=== PATIENT | male | born 1960 | race Caucasian/White ===

== ENCOUNTER 2024-10-27 14:31 | Inpatient (IN) | payer MEDICARE ==
[~2024-10-27] VITALS: Ht 162.6 cm; Wt 76.7 kg
[2024-10-27 14:35] VITALS: O2SAT 98
[2024-10-27 16:20] LABS: BASOPHILS # (AUTO) 0.1 K/uL (0.0-0.2); BASOPHILS % (AUTO) 2.1 % (0.0-2.0); EOSINOPHILS # (AUTO) 0.1 K/uL (0.0-0.7); EOSINOPHILS % (AUTO) 3.1 % (0.0-6.0); HEMATOCRIT 32 % (39-51); HEMOGLOBIN 10.7 g/dL (13.5-17.5); LYMPHOCYTES # (AUTO) 0.8 K/uL (0.8-4.8); LYMPHOCYTES % (AUTO) 18.6 % (20.0-44.0); MEAN CORPUSCULAR HEMOGLOBIN 32 PG (26.0-33.0); MEAN CORPUSCULAR HGB CONC 34 g/dl (31.0-36.0); MEAN CORPUSCULAR VOLUME 94 fL (80-96); MONOCYTES # (AUTO) 0.4 K/uL (0.1-1.30); MONOCYTES % (AUTO) 9.4 % (2.0-12.0); NEUTROPHILS # (AUTO) 2.8 K/uL (1.8-8.9); NEUTROPHILS % (AUTO) 66.8 % (43.0-81.0); PLATELET COUNT (AUTO) 139 K/uL (150-450); RED BLOOD CELL COUNT(AUTO) 3.38 MIL/uL (4.5-6.0); RED CELL DISTRIBUTION WIDTH 15.2 % (11.5-15.0); WHITE BLOOD COUNT (AUTO) 4.2 K/uL (4.3-11.0)
[2024-10-27 16:36] LABS: INR 1.46 (0.91-1.10); PARTIAL THROMBOPLASTIN TIME 30.2 SEC (24.3-34.3); PROTHROMBIN TIME 15.1 SECS (9.2-11.1)
[2024-10-27 16:38] LABS: SERUM AMMONIA 27 umol/L (11-32)
[2024-10-27 16:55] LABS: CALCIUM, SERUM 9.7 mg/dL (8.5-10.1); CARBON DIOXIDE 32 mmol/L (21-32); CHLORIDE 92 mmol/L (98-107); CREATININE 7.4 mg/dL (0.6-1.3); GLUCOSE 94 mg/dL (74-106); POTASSIUM 4.4 mmol/L (3.5-5.1); SODIUM SERUM 132 mmol/L (136-145); UREA NITROGEN, BLOOD 44 mg/dL (7-18)
[2024-10-27 17:05] LABS: ALANINE AMINOTRANSFERASE 25 U/L (12-78); ALBUMIN 4.5 g/dL (3.4-5.0); ALCOHOL, BLOOD < 3 mg/dL (0-10); ALKALINE PHOSPHATASE 280 U/L (46-116); ASPARTATE AMINOTRANSFERASE 13 U/L (15-37); BILIRUBIN,DIRECT 0.2 mg/dL (0.0-0.2); BILIRUBIN,TOTAL 0.5 mg/dL (0.2-1.0); TOTAL PROTEIN, SERUM 8.3 g/dL (6.4-8.2)
[2024-10-27] MEDS ORDERED: HYDR100T27 PO (18:11)
[2024-10-27] MEDS ORDERED: FURO80TA3 PO (18:11)
[2024-10-27] MEDS ORDERED: INSU100I26 SQ (18:11)
[2024-10-27] MEDS ORDERED: ERGO500093 PO (18:11)
[2024-10-27] MEDS ORDERED: SUCR500T PO (18:11)
[2024-10-27] MEDS ORDERED: LOSA50TA39 PO (18:11)
[2024-10-27] MEDS ORDERED: ASPI-1169 PO (18:11)
[2024-10-27] MEDS ORDERED: NIFE-35 PO (18:11)
[2024-10-27] MEDS ORDERED: NIFE-57 PO (18:11)
[2024-10-27] MEDS ORDERED: OMEG1CAP55 PO (18:11)
[2024-10-27] MEDS ORDERED: LABE100T5 PO (18:11)
[2024-10-27] MEDS ORDERED: GABA-532 PO (18:11)
[2024-10-27] MEDS ORDERED: AMLO-213 PO (18:11)
[2024-10-27 21:00] VITALS: BP 158/64; TEMP 98.8; O2SAT 98
[2024-10-27] MEDS ORDERED: TEMAZEPAM 15 MG CAPSULE PO PRN (21:30)
[2024-10-27] MEDS ORDERED: HYDROCODONE/APAP 5/325MG TABLET PO PRN (21:30)
[2024-10-27] MEDS ORDERED: MAGNESIUM HYDROXIDE 30 ML UDC PO PRN (21:30)
[2024-10-27] MEDS ORDERED: DEXTROSE 50%-WATER 50 ML DISP.SYRIN IV PRN (21:30)
[2024-10-27] MEDS ORDERED: ONDANSETRON HCL/PF 4 MG/2 ML VIAL IVP PRN (21:30)
[2024-10-27] MEDS ORDERED: Z GUARD REMEDY 4 OZ OINT TP PRN (21:30)
[2024-10-27] MEDS ORDERED: MAG HYDROX/AL HYDROX/SIMETH 30 ML UDC PO PRN (21:30)
[2024-10-27] MEDS: INSULIN REGULAR, HUMAN 100 UNIT/ML 3 ML VIAL SQ PRN (22:05)
[2024-10-27] MEDS: BLOOD SUGAR DIAGNOSTIC 1 EACH STRIP IN SCH (22:05)
[2024-10-27] MEDS ORDERED: ERGOCALCIFEROL (VITAMIN D 2) 50,000 UNIT CAPSULE PO SCH (23:30)
[2024-10-27] MEDS ORDERED: HOME MED MISCELLANEOUS XX SCH ×3 (23:30)
[2024-10-28] VITALS (8 sets, daily range): BP systolic 123–164; BP diastolic 51–80; TEMP 97.9–98.6; O2SAT 95–100
[2024-10-28] MEDS: hydrALAZINE HCL IV 20 MG VIAL IV PRN (00:04)
[2024-10-28 07:19] LABS: BASOPHILS # (AUTO) 0.1 K/uL (0.0-0.2); BASOPHILS % (AUTO) 1.8 % (0.0-2.0); EOSINOPHILS # (AUTO) 0.1 K/uL (0.0-0.7); EOSINOPHILS % (AUTO) 2.5 % (0.0-6.0); HEMATOCRIT 32 % (39-51); HEMOGLOBIN 10.6 g/dL (13.5-17.5); LYMPHOCYTES # (AUTO) 1.2 K/uL (0.8-4.8); LYMPHOCYTES % (AUTO) 23.8 % (20.0-44.0); MEAN CORPUSCULAR HEMOGLOBIN 31 PG (26.0-33.0); MEAN CORPUSCULAR HGB CONC 34 g/dl (31.0-36.0); MEAN CORPUSCULAR VOLUME 94 fL (80-96); MONOCYTES # (AUTO) 0.6 K/uL (0.1-1.30); MONOCYTES % (AUTO) 11.5 % (2.0-12.0); NEUTROPHILS # (AUTO) 3.1 K/uL (1.8-8.9); NEUTROPHILS % (AUTO) 60.4 % (43.0-81.0); PLATELET COUNT (AUTO) 145 K/uL (150-450); RED BLOOD CELL COUNT(AUTO) 3.36 MIL/uL (4.5-6.0); RED CELL DISTRIBUTION WIDTH 15.2 % (11.5-15.0); WHITE BLOOD COUNT (AUTO) 5.1 K/uL (4.3-11.0)
[2024-10-28 08:08] LABS: CALCIUM, SERUM 9.8 mg/dL (8.5-10.1); MAGNESIUM 2.8 mg/dL (1.8-2.4); PHOSPHORUS 5.8 mg/dL (2.5-4.9); POTASSIUM 5.2 mmol/L (3.5-5.1)
[2024-10-28 08:17] LABS: THYROID STIMULATING HORMONE 1.82 uIU/mL (0.358-3.74)
[2024-10-28] MEDS: PANTOPRAZOLE 40 MG TABLET.DR PO SCH (08:26)
[2024-10-28 08:45] LABS: CREATININE 9.3 mg/dL (0.6-1.3)
[2024-10-28] MEDS: LABETALOL HCL (100MG) 100 MG TABLET PO SCH (09:03)
[2024-10-28] MEDS: hydrALAZINE HCL 50 MG TABLET PO SCH (09:03)
[2024-10-28] MEDS: LOSARTAN POTASSIUM 50 MG TABLET PO SCH (09:04)
[2024-10-28] MEDS: AMLODIPINE BESYLATE 10 MG TABLET PO SCH (09:04)
[2024-10-28] MEDS: GABAPENTIN 100 MG CAPSULE PO SCH (09:04)
[2024-10-28] MEDS: ASPIRIN 81 MG TAB.CHEW PO SCH (09:04)
[2024-10-28] MEDS: FUROSEMIDE 40 MG TABLET PO SCH (09:05)
[2024-10-28] MEDS: NIFEdipine XL (30MG) 30 MG TAB PO SCH (09:05)
[2024-10-28] MEDS: INSULIN GLARGINE, 100 UNIT/ML CARTRIDGE SQ SCH (10:14)
[2024-10-28] MEDS: CEFTRIAXONE 1 G in IV D5W 50 ML IV SCH (12:47)
[2024-10-28] MEDS: AZITHROMYCIN 500 MG in IV D5W 250 ML IV SCH (13:35)
[2024-10-29] MEDS: ACETAMINOPHEN 325 MG TABLET PO PRN (03:47)
[2024-10-29 07:00] VITALS: BP 167/78; TEMP 98.1; O2SAT 99
[2024-10-29 07:59] LABS: BASOPHILS # (AUTO) 0.2 K/uL (0.0-0.2); EOSINOPHILS # (AUTO) 0.1 K/uL (0.0-0.7); EOSINOPHILS % (AUTO) 2.4 % (0.0-6.0); HEMATOCRIT 34 % (39-51); HEMOGLOBIN 11.7 g/dL (13.5-17.5); LYMPHOCYTES # (AUTO) 1.5 K/uL (0.8-4.8); LYMPHOCYTES % (AUTO) 28.4 % (20.0-44.0); MEAN CORPUSCULAR HEMOGLOBIN 32 PG (26.0-33.0); MEAN CORPUSCULAR HGB CONC 34 g/dl (31.0-36.0); MEAN CORPUSCULAR VOLUME 94 fL (80-96); MONOCYTES # (AUTO) 0.7 K/uL (0.1-1.30); MONOCYTES % (AUTO) 12.8 % (2.0-12.0); NEUTROPHILS # (AUTO) 2.9 K/uL (1.8-8.9); NEUTROPHILS % (AUTO) 53.4 % (43.0-81.0); PLATELET COUNT (AUTO) 147 K/uL (150-450); RED BLOOD CELL COUNT(AUTO) 3.63 MIL/uL (4.5-6.0); WHITE BLOOD COUNT (AUTO) 5.4 K/uL (4.3-11.0)
[2024-10-29 08:16] LABS: ALBUMIN 4.2 g/dL (3.4-5.0); BILIRUBIN,TOTAL 0.6 mg/dL (0.2-1.0); CALCIUM, SERUM 10.3 mg/dL (8.5-10.1); MAGNESIUM 2.6 mg/dL (1.8-2.4); PHOSPHORUS 5.9 mg/dL (2.5-4.9); POTASSIUM 5.3 mmol/L (3.5-5.1); TOTAL PROTEIN, SERUM 8.1 g/dL (6.4-8.2)
[2024-10-29 08:58] LABS: CREATININE 8.4 mg/dL (0.6-1.3)
[2024-10-29 11:26] VITALS: BP 160/62; TEMP 98.1; O2SAT 98
[2024-10-29] MEDS ORDERED: AZIT500T2 PO (14:38)
[2024-10-29] MEDS ORDERED: PANT40TA49 PO (14:38)
[2024-10-29 16:00] VITALS: BP 124/82; TEMP 97.9; O2SAT 100
[2024-10-29 16:02] VITALS: BP 124/82
[2024-10-29 16:26] LABS: THYROID STIMULATING HORMONE 2.08 uIU/mL (0.358-3.74)
== END 2024-10-29 17:20 | disposition home or self-care (01) | DRG 177 ==
LOC: ER 14:40 → TELE 20:22
PROVIDERS: ADMIT Nurse Practitioner Acute Care; ATTEND Nurse Practitioner Acute Care
PROC: 5A1D70Z Performance of Urinary Filtration, Intermittent, Less than 6 Hours Per Day (ICD-10-PCS; principal; 2024-10-28)
DX: J15.69 Pneumonia due to other Gram-negative bacteria (principal); G93.41 Metabolic encephalopathy; N18.6 End stage renal disease; I12.0 Hypertensive chronic kidney disease with stage 5 chronic kidney disease or end stage renal disease; E87.1 Hypo-osmolality and hyponatremia; E87.8 Other disorders of electrolyte and fluid balance, not elsewhere classified; E11.22 Type 2 diabetes mellitus with diabetic chronic kidney disease; Z79.4 Long term (current) use of insulin; Z79.82 Long term (current) use of aspirin; Z79.899 Other long term (current) drug therapy; E78.5 Hyperlipidemia, unspecified; E66.9 Obesity, unspecified; Z68.29 Body mass index [BMI] 29.0-29.9, adult; Z99.2 Dependence on renal dialysis; M89.8X9 Other specified disorders of bone, unspecified site; D64.9 Anemia, unspecified; E87.5 Hyperkalemia; E87.70 Fluid overload, unspecified
CPT/HCPCS: 36415; 70450-TC; 71045-TC; 80048-TC; 80053-TC; 80061-TC; 80076-TC; 82140-TC; 82607-TC; 82962-TC; 83735-TC; 83921; 84100-TC; 84425; 84443-TC; 84484-TC; 85025-TC; 85730-TC; 90935-TC; A4223; A6253; A6403; G0378; G0480; J0360; J0456; J0696; J1815; J7030; J7050; J7060